=== PATIENT | female | born 1960 | race Asian ===

== ENCOUNTER 2022-08-03 15:45 | Emergency (ER) | payer SELFPAY ==
--- NOTE | 2022-08-03 16:25 | NUR ---
LEFT WITHOUT TRIAGE
--- NOTE | 2022-08-03 17:58 | NUR ---
PT. NOT FOUND IN LOBBY. CALLED PT.S NAME OUTSIDE ER. CHECKED BATHROOMS. PT. NOT FOUND. PT. LEFT WITHOUT BEING SEEN. NOTIFIED.
--- NOTE | 2022-08-03 18:00 | NUR ---
PT. NOT FOUND IN LOBBY. CALLED PT.S NAME OUTSIDE ER. CHECKED BATHROOMS. PT. NOT FOUND. PT. LEFT WITHOUT BEING SEEN. NOTIFIED.
== END 2022-08-03 16:23 | disposition left against medical advice (07) ==
LOC: MED 15:45
DX: Z53.21 Procedure and treatment not carried out due to patient leaving prior to being seen by health care provider (principal)